=== PATIENT | female | born 1990 | race American Indian/Alaskan Native ===

== ENCOUNTER 2018-06-19 23:46 | Inpatient (IN) | payer MEDICAID ==
[2018-06-20] MEDS ORDERED: MINERAL OIL PO PRN (00:22)
[2018-06-20] MEDS ORDERED: BRETHINE SUB-Q PRN (00:22)
[2018-06-20] MEDS ORDERED: XYLOCAINE 2% INFILTRATI ONE (00:22)
[2018-06-20] MEDS ORDERED: STADOL IV PRN (00:22)
[2018-06-20] MEDS ORDERED: NARCAN 0.4 MG/1 ML IV PRN (00:22)
[2018-06-20] MEDS ORDERED: PHENERGAN PO PRN ×2 (00:22→01:51)
[2018-06-20] MEDS ORDERED: AMPICILLIN/NS 2 GM/100 ML 2 GM/100 ML BAG IV ONE (00:22)
[2018-06-20] MEDS ORDERED: SUBLIMAZE IV PRN (00:22)
[2018-06-20] MEDS ORDERED: BRETHINE IVP PRN (00:22)
[2018-06-20] MEDS ORDERED: ZOFRAN IV PRN ×2 (00:22→01:51)
--- NOTE | 2018-06-20 00:22 | History and Physical Report ---
History of Present Illness Date of examination: 06/20/18 Chief complaint: SROM History of present illness: Pt is a 27yo BF EDC 06/08/18; EGA 41 5/7 weeks presents to L&D complaining of SROM meconium fluid followed by RUC's q 3-4 mins. She received care in [place] and had a previous C Section followed by 2 's. records are not available and GBS is unknown. Past History Past Medical History: no pertinent history Past Surgical History: section Social history: no significant social history, single - Obstetrical History Expected Date of Delivery: 06/08/18 Actual Gestation: 41 Week(s) 5 Day(s) : 4 Medications and Allergies Allergies Allergy/AdvReac Type Severity Reaction Status Date / Time No Known Allergies Allergy Verified 06/20/18 00:46 Review of Systems All systems: negative - Physical Exam Breasts: Positive: deferred Cardiovascular: Regular rate Lungs: Positive: Clear to auscultation Abdomen: Positive: normal appearance Genitourinary (Female): Positive: normal external genitalia Vagina: Positive: normal moisture Uterus: Positive: enlarged Extremities: Positive: normal - Obstetrical FHR: category 1 Uterine Contraction Monitor Mode: External Cervical Dilatation: 6 (per nurse) Cervical Effacement Percentage: 70 (per nurse) station: -2 Uterine Contraction Pattern: Regular Uterine Tone Measurement Phase: Contraction Uterine Contraction Intensity: Strong/Firm Results Result Diagrams: 06/20/18 01:14 All other labs normal. Assessment and Plan - Patient Problems (1) 41 weeks gestation of Onset Date: 06/20/18 Current Visit: Yes Status: Acute Plan to address problem: A: IUP @ 41 5/7 weeks in labor Previous C Section Previous x 2 Unknown GBS P: Admit to L&D for expectant vaginal delivery IV Ampicillin (2) Previous section complicating Onset Date: 06/20/18 Current Visit: Yes Status: Acute
[2018-06-20] MEDS ORDERED: LACTATED RINGERS 1,000 ML IV SCH (01:00)
[2018-06-20] MEDS ORDERED: PITOCin/NS 20 UNIT/1000ML DRIP 20 UNITS/1,000 ML BAG IV SCH ×2 (01:00→02:00)
[2018-06-20] MEDS ORDERED: PITOCin/NS 30 UNIT/500ML 30 UNITS/500 ML BAG IV SCH (01:00)
[2018-06-20 01:37] LABS: Hematocrit 33.2 % (30.3-42.9); Hemoglobin 11.1 gm/dl (10.1-14.3); Mean Corpuscular HGB Conc 34 % (30-34); Mean Corpuscular Volume 90 fl (79-97); Platelet Count 169 K/mm3 (140-440); Red Blood Count 3.69 M/mm3 (3.65-5.03); Red Cell Distribution Width 12.7 % (13.2-15.2)
--- NOTE | 2018-06-20 01:50 | Procedure Note ---
OB Delivery Note - Delivery Date of Delivery: 06/20/18 Surgeon: PAULINA GONZÁLES Estimated blood loss: other (150ml) - Vaginal Delivery presentation: vertex Delivery position: OA Intrapartum events: PROM->1hr before delivery, meconium, precipitous labor- <3hr Delivery induction: none Delivery augmentation: rupture of membranes Delivery monitor: external FHT, external uterine Route of delivery: Delivery placenta: spontaneous Delivery cord: 3 umbilical vessels Episiotomy: none Delivery laceration: 1st degree (perineal) Delivery repair: vicryl Anesthesia: local Delivery comments: Infant delivered OA and handed to awaiting Peds/RT in attendance. Cord cut by Dad. - Infant A at 1 minute: 8 at 5 minutes: 9 Gender: Male (3693gms)
[2018-06-20] MEDS ORDERED: TYLENOL PO PRN (01:51)
[2018-06-20] MEDS ORDERED: TUCKS PAD TP PRN (01:51)
[2018-06-20] MEDS ORDERED: DULCOLAX PR PRN (01:51)
[2018-06-20] MEDS ORDERED: NORCO 5/325 PO PRN (01:51)
[2018-06-20] MEDS ORDERED: PHENERGAN PR PRN (01:51)
[2018-06-20] MEDS ORDERED: BENADRYL PO PRN (01:51)
[2018-06-20] MEDS ORDERED: LANSINOH TP PRN (01:51)
[2018-06-20] MEDS ORDERED: MILK OF MAGNESIA PO PRN (01:51)
[2018-06-20] MEDS ORDERED: SODIUM CHLORIDE FLUSH SYRINGE 10 ML IV PRN (02:00)
[2018-06-20] MEDS ORDERED: AMPICILLIN/NS 1 GM/50 ML 1 GM/50 ML BAG IV SCH (05:00)
[2018-06-20] MEDS: IBUPROFEN PO SCH ×2 (05:47→21:31)
[2018-06-20 07:27] LABS: Amphetamine Screen,Urine PRESUMPTIVE NEGATIVE; Benzodiazepines Screen,Urine PRESUMPTIVE NEGATIVE; Cannabinoid Screen,Urine PRESUMPTIVE NEGATIVE; Cocaine Screen,Urine PRESUMPTIVE NEGATIVE; Methadone Screen,Urine PRESUMPTIVE NEGATIVE; Opiate Screen,Urine PRESUMPTIVE NEGATIVE
[2018-06-20] MEDS: FEOSOL PO SCH ×2 (10:00→21:31)
[2018-06-20] MEDS: COLACE PO SCH ×2 (10:07→21:31)
[2018-06-20] MEDS: PRENATAL VITAMIN PO SCH (10:08)
[2018-06-20 14:19] LABS: Hematocrit 30.4 % (30.3-42.9)
[2018-06-21] MEDS ORDERED: M-M-R II VACCINE SUB-Q ONE (01:51)
[2018-06-21] MEDS: IBUPROFEN PO SCH ×3 (03:15→18:57)
[2018-06-21] MEDS ORDERED: BOOSTRIX IM ONE (06:00)
[2018-06-21] MEDS: COLACE PO SCH ×2 (11:37→22:06)
[2018-06-21] MEDS: PRENATAL VITAMIN PO SCH (11:37)
[2018-06-21] MEDS: FEOSOL PO SCH ×2 (12:31→22:06)
--- NOTE | 2018-06-21 23:45 | Progress Note ---
Assessment and Plan A: day 1 S/P vaginal delivery. Anemia secondary to and blood loss. P: Continue iron supplementation and current management. Subjective - Subjective Date of service: 06/21/18 Principal diagnosis: day 1 S/P vaginal delivery Interval history: day 1 S/P vaginal delivery. Doing well. Patient reports: appetite normal, voiding normally, pain well controlled, flatus, ambulating normally, no dizzy ambulation, no nauseated [place]: doing well Objective - Vital Signs Latest vital signs: Vital Signs Temp Pulse Resp BP BP BP Pulse Ox 06/21/18 22:56 98.6 F 68 20 125/83 96 06/21/18 16:36 97.7 F 73 18 125/84 06/21/18 08:41 97.7 F 77 18 123/85 06/21/18 01:15 98.3 F 83 18 111/70 Intake and Output 06/21/18 06/21/18 06/21/18 07:59 15:59 23:59 Intake Total 720 480 360 Balance 720 480 360 Intake: Oral 120 480 360 Intake, Free Water 600 Other: Total, Intake Amount 120 120 360 # Voids Void 2 1 1 - Exam Abdomen: Present: normal appearance, soft. Absent: distention, tenderness, guarding, rigidity Uterus: Present: normal, firm, fundal height below umbilicus. Absent: bogginess, tenderness Extremities: Present: normal. Absent: tenderness, edema
[2018-06-22] MEDS: IBUPROFEN PO SCH ×2 (02:31→08:25)
[2018-06-22] MEDS: COLACE PO SCH (11:28)
[2018-06-22] MEDS: FEOSOL PO SCH (11:28)
[2018-06-22] MEDS: PRENATAL VITAMIN PO SCH (11:29)
--- NOTE | 2018-06-22 14:06 | Progress Note ---
Assessment and Plan - Patient Problems (1) Vaginal after section Current Visit: Yes Status: Acute Plan to address problem: PPD #2 - stable Continue routine orders Discharge to home today Follow up at [facility] or with GYMNASTICS COACH OR INSTRUCTOR in 6 weeks for exam (2) Anemia due to blood loss, acute Current Visit: Yes Status: Acute Plan to address problem: Asymptomatic Continue iron therapy; ferrous sulfate 325mg PO BID Subjective - Subjective Date of service: 06/22/18 Principal diagnosis: PPD #2; s/p Interval history: see H&P, OB Delivery Procedure Note and PP/WET ROASTER Progress Note Patient reports: appetite normal, voiding normally, pain well controlled, ambulating normally [place]: doing well, nursing well Objective - Vital Signs Latest vital signs: Vital Signs Temp Pulse Resp BP BP Pulse Ox 06/22/18 09:20 98.1 F 81 120/67 06/21/18 22:56 98.6 F 68 20 125/83 96 06/21/18 16:36 97.7 F 73 18 125/84 Intake and Output 06/21/18 06/22/18 06/22/18 23:59 07:59 15:59 Intake Total 360 240 Balance 360 240 Intake: Oral 360 240 Other: Total, Intake Amount 360 240 # Voids Void 1 - Exam Cardiovascular: Present: Regular rate Lungs: Present: Clear to auscultation Abdomen: Present: normal appearance, soft Vulva: both: laceration/episiotomy (well approximated) Uterus: Present: normal, firm, fundal height below umbilicus Extremities: Present: normal Comments: scant lochia
--- NOTE | 2018-06-22 14:17 | Discharge Summary ---
Providers - Providers Date of Admission: 06/20/18 00:23 Date of discharge: 06/22/18 Attending physician: PAULINA GONZÁLES Primary care physician: SUPERVISOR FRAME [employer]SEMBLY Hospitalization Reason for admission: active labor, IUP at term Delivery: Episiotomy: none Laceration: 1st degree (perineal) Other procedures: none complications: none Discharge diagnosis: IUP at term delivered baby: male Hospital course: Uncomplicated Condition at discharge: Stable Disposition: DC-01 TO HOME OR SELFCARE - Discharge Diagnoses (1) Vaginal after section Status: Acute (2) Anemia due to blood loss, acute Status: Acute Comment: Asymptomatic Continue iron therapy Plan - Discharge Medications Prescriptions: Ferrous Sulfate [Feosol 325 MG tab] 325 mg PO BID #60 tablet - Provider Discharge Summary Activity: routine, no sex for 6 weeks, no heavy lifting 4 weeks, no strenuous exercise Diet: routine Instructions: routine Additional instructions: [] Smoking cessation referral if applicable(refer to patient education folder for contact #) [] Refer to [facility] Booklet Call your doctor immediately for: * Fever > 100.5 * Heavy vaginal bleeding ( >1 pad per hour) * Severe persistent headache * Shortness of breath * Reddened, hot, painful area to leg or breast * Drainage or odor from incision. * Keep incision clean and dry at all times and follow doctor's instructions re garding bathing/showering - Follow up plan Follow up: PRIMARY CARE, [Primary Care Provider] - 6 Weeks (Follow up at [facility] or with LANCE CREWMEMBER/MLRS SERGEANT in 6 weeks for exam)
[2018-06-22 19:00] VITALS: BP 121/78
== END 2018-06-22 19:15 | disposition home or self-care (01) | DRG 775 ==
LOC: TRG 23:46 → LD 06-20 00:23 → OB 06-20 03:25
PROVIDERS: ADMIT Obstetrics & Gynecology; ATTEND Obstetrics & Gynecology
PROC: 10E0XZZ Delivery of Products of Conception, External Approach (ICD-10-PCS; principal; 2018-06-20)
PROC: 0HQ9XZZ Repair Perineum Skin, External Approach (ICD-10-PCS; 2018-06-20)
PROC: 3E0234Z Introduction of Serum, Toxoid and Vaccine into Muscle, Percutaneous Approach (ICD-10-PCS; 2018-06-20)
DX: O62.3 Precipitate labor (principal); O34.219 Maternal care for unspecified type scar from previous cesarean delivery; Z3A.41 41 weeks gestation of pregnancy; Z37.0 Single live birth; O77.0 Labor and delivery complicated by meconium in amniotic fluid; D62 Acute posthemorrhagic anemia; Z23 Encounter for immunization; O70.0 First degree perineal laceration during delivery; O99.02 Anemia complicating childbirth
CPT/HCPCS: 36415; 80307; 85014; 85018; 85027; 86592; 86706; 86762; 86850; 86900; 86901; 87806; G0378; A6250; J0290; J2590; J3010; J7120